=== PATIENT | female | born 1985 | race Caucasian/White ===

== ENCOUNTER 2017-02-10 08:32 | Day surgery (SDC) | payer MEDICARE, OTHER, SELFPAY ==
[~2017-02-10 08:32] MED LIST: Midazolam 1 MG/ML 2 ML SDV ONE; Propofol 200 MG/20 ML SDV ONE; fentaNYL 100 MCG/2 ML SDV ONE
[2017-02-10] MEDS ORDERED: Lactated Ringers 1,000 ML IV SCH (09:00)
[2017-02-10] MEDS ORDERED: Glycopyrrolate 0.2 MG/ML 2 ML SDV IVPUSH ONE (09:30)
[2017-02-10] MEDS ORDERED: Cyanocobalamin (Vitamin B12) 1,000 MCG/ML SDV IM ONE (10:00)
[2017-02-10] MEDS ORDERED: MVI, Adult with Vitamin K 10 ML, Thiamine 200 MG, Chromium/Copper/Mang/Selen/Zn 1 ML in... IV ONE ×4 (10:00)
[2017-02-10 12:28] VITALS: BP 120/70
--- NOTE | 2017-02-11 16:54 | OR ---
DATE OF PROCEDURE: 02/10/2017 PREOPERATIVE DIAGNOSIS: Epigastric discomfort, heartburn, and dysphagia status post gastric bypass. 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 OPERATIVE PROCEDURE: Upper GI endoscopy with biopsies of gastric pouch for CLOtest. ANESTHESIA: IV sedation. 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 The patient also has history of tongue cancer status post chemotherapy, radiation, and surgical treatment. She presently is on Prilosec 20 mg a day. Plan is to do an upper GI endoscopy with biopsies and/or dilation as indicated. Potential risks including bleeding and perforation were discussed, and the patient wishes to proceed. DETAILS OF PROCEDURE: The patient was taken to the operating room and placed in a left lateral decubitus position. IV sedation was administered, after which the upper GI endoscope was passed orally through the length of esophagus into the gastric pouch through the gastrojejunostomy roughly 20 cm into the Kelli limb. Findings included a normal esophageal body. The patient did have a little bit of narrowing at the upper esophageal sphincter. This is related to previous radiation treatment. Apart from that, the remainder of the esophagus was unremarkable. At the EG junction, there was no significant inflammation within the gastric pouch. There was some moderate redness and edema present suggestive of pouch gastritis which was likely causing the patient's symptoms. The gastrojejunostomy was wide open without any evidence of marginal ulcer and the remaining portion of the Kelli limb was unremarkable. Artur Gramajo MD /[id number]
== END 2017-02-10 12:15 | disposition home or self-care (01) ==
LOC: JP.SDS 08:32
PROVIDERS: ATTEND Surgery
DX: K29.70 Gastritis, unspecified, without bleeding (principal); K21.9 Gastro-esophageal reflux disease without esophagitis; J45.909 Unspecified asthma, uncomplicated; E03.9 Hypothyroidism, unspecified; F41.9 Anxiety disorder, unspecified; F32.9 Major depressive disorder, single episode, unspecified; Z88.1 Allergy status to other antibiotic agents; Z88.8 Allergy status to other drugs, medicaments and biological substances; Z91.040 Latex allergy status; Z91.09 Other allergy status, other than to drugs and biological substances; Z87.891 Personal history of nicotine dependence; Z90.49 Acquired absence of other specified parts of digestive tract; Z98.84 Bariatric surgery status; Z98.890 Other specified postprocedural states; Z90.710 Acquired absence of both cervix and uterus
CPT/HCPCS: 43239; 87081; J2250; J2704; J3010; J3411; J3420; J7120; J3490

== ENCOUNTER 2022-09-11 10:15 | Inpatient (IN) | payer MEDICARE, OTHER ==
[2022-09-15] MEDS ORDERED: Celecoxib 200 MG Cap PO ONE (09:00)
[2022-09-15] MEDS ORDERED: Scopolamine 1.5 MG Transdermal Patch TOP SCH (09:00)
[2022-09-15] MEDS ORDERED: Dextrose 5%-Lactated Ringers 1,000 ML IV SCH (10:00)
[2022-09-15] MEDS ORDERED: Ropivacaine 30 ML, dexAMETHasone 8 MG, EPINEPHrine 0.4 MG, Sodium Chloride 0.9% 47.6 ML NERVRT SCH ×4 (10:15)
[2022-09-15] MEDS ORDERED: Ketamine 17 MG in Sodium Chloride 0.9% 19.83 ML IV SCH (10:15)
[2022-09-15] MEDS ORDERED: Ketamine 500 MG/5 ML MDV IV SCH (10:15)
[2022-09-15] MEDS ORDERED: Albuterol/Ipratropium 3.0-0.5 MG/3 ML Neb Soln NEB ONE (10:30)
[2022-09-15] MEDS ORDERED: Meropenem 500 MG in Sodium Chloride 0.9% 50 ML IV ONE (10:30)
[2022-09-19] MEDS ORDERED: Bupivacaine 0.5% 50 ML MDV ONE (06:55)
[2022-09-19] MEDS ORDERED: Meropenem 500 MG SDV ONE ×2 (06:55→07:34)
[2022-09-19] MEDS ORDERED: Lidocaine 1% with EPINEPHrine 1:100,000 50 ML MDV ONE (06:56)
[2022-09-19] MEDS ORDERED: Neostigmine Methylsulfate 1 MG/ML 5 ML Syringe ONE (07:18)
[2022-09-19] MEDS ORDERED: Succinylcholine 200 MG/10 ML MDV ONE (07:18)
[2022-09-19] MEDS ORDERED: fentaNYL 250 MCG/5 ML SDV ONE ×2 (07:18→11:59)
[2022-09-19] MEDS ORDERED: Propofol 200 MG/20 ML SDV ONE (07:18)
[2022-09-19] MEDS ORDERED: Rocuronium 50 MG/5 ML Vial ONE (07:18)
[2022-09-19] MEDS ORDERED: Glycopyrrolate 0.2 MG/ML 5 ML MDV ONE (07:18)
[2022-09-19] MEDS ORDERED: Dexamethasone 4 MG/ML SDV ONE (07:18)
[2022-09-19] MEDS ORDERED: Ondansetron 4 MG/2 ML SDV ONE (07:18)
[2022-09-19] MEDS: Albuterol/Ipratropium 3.0-0.5 MG/3 ML Neb Soln NEB ONE ×2 (08:48→15:22)
[2022-09-19 09:06] LABS: ESTIMATED GFR 113 mL/min (>60)
[2022-09-19] MEDS ORDERED: Ketamine 17 MG in Sodium Chloride 0.9% 19.83 ML IV SCH (09:45)
[2022-09-19] MEDS ORDERED: Scopolamine 1.5 MG Transdermal Patch TOP ONE (09:45)
[2022-09-19] MEDS ORDERED: Dextrose 5%-Lactated Ringers 1,000 ML IV SCH ×2 (09:45→15:30)
[2022-09-19] MEDS ORDERED: Ropivacaine 30 ML, dexAMETHasone 8 MG, EPINEPHrine 0.4 MG, Sodium Chloride 0.9% 47.6 ML NERVRT SCH ×4 (09:45)
[2022-09-19] MEDS ORDERED: Celecoxib 200 MG Cap PO ONE (09:45)
[2022-09-19] MEDS ORDERED: Ketamine 500 MG/5 ML MDV IV SCH (09:45)
[2022-09-19] MEDS ORDERED: Meropenem 500 MG in Sodium Chloride 0.9% 50 ML IV ONE (10:15)
[2022-09-19] MEDS ORDERED: ePHEDrine 50 MG/ML SDV ONE (11:38)
[2022-09-19] MEDS ORDERED: diphenhydrAMINE 50 MG/ML SDV IVPUSH PRN ×2 (12:08→16:00)
[2022-09-19] MEDS ORDERED: Ondansetron 4 MG/2 ML SDV IVPUSH PRN ×2 (12:08→16:00)
[2022-09-19] MEDS ORDERED: diphenhydrAMINE 25 MG Cap PO PRN (12:08)
[2022-09-19] MEDS ORDERED: Naloxone 0.4 MG/ML SDV IVPUSH PRN (12:08)
[2022-09-19] MEDS ORDERED: Glucagon,Human Recombinant 1 MG Vial ONE (12:33)
[2022-09-19] MEDS: HYDROmorphone/Normal Saline 6 MG/30 ML PCA Vial IV PRN ×2 (12:34→19:21)
[2022-09-19] MEDS ORDERED: Melatonin 3 MG Tab PO PRN (15:48)
[2022-09-19] MEDS ORDERED: Lidocaine 2% Viscous Solution 15 ML UD PO PRN (15:54)
[2022-09-19] MEDS: Cyclobenzaprine 10 MG Tab PO PRN (15:55)
[2022-09-19] MEDS ORDERED: Metoclopramide 10 MG/2 ML SDV IVPUSH PRN (16:00)
[2022-09-19] MEDS ORDERED: Labetalol 20 MG/4 ML Syringe IVPUSH PRN (16:00)
[2022-09-19] MEDS ORDERED: Acetaminophen 500 MG Tab PO PRN (16:00)
[2022-09-19] MEDS ORDERED: MVI, Adult with Vitamin K 10 ML, Thiamine 200 MG, Zinc/Copper/Manganese/Selenium 1 ML i... IV SCH ×4 (16:00)
[2022-09-19] MEDS ORDERED: hydrOXYzine HCl 50 MG/ML SDV IM PRN (16:00)
[2022-09-19] MEDS ORDERED: Albuterol/Ipratropium 3.0-0.5 MG/3 ML Neb Soln INH PRN (16:00)
[2022-09-19] MEDS: Meropenem 500 MG in Sodium Chloride 0.9% 50 ML IV SCH ×2 (16:32→22:53)
[2022-09-19] MEDS: Pantoprazole 40 MG Vial IVPUSH SCH (16:35)
[2022-09-19] MEDS: 1: AA 5%/Calcium/D15W/Lytes 1,000 ML with MVI, Adult with Vitamin K 10 ML, Zinc/Copper/M IV SCH ×3 (17:27)
[2022-09-19] MEDS: Dextrose 5%-Lactated Ringers 1,000 ML IV SCH (17:28)
[2022-09-19] MEDS: Acetaminophen 500 MG Tab PO SCH (17:36)
[2022-09-19] MEDS: Heparin Sodium 5,000 Units/ML Vial SUBCUT SCH (20:17)
[2022-09-19] MEDS: Mirtazapine 15 MG Tab PO SCH (20:18)
[2022-09-19] MEDS: Albuterol/Ipratropium 3.0-0.5 MG/3 ML Neb Soln INH SCH (22:01)
[2022-09-19] MEDS: ClonazePAM 0.5 MG Tab PO PRN (22:02)
[2022-09-20] MEDS: Dextrose 5%-Lactated Ringers 1,000 ML IV SCH ×2 (01:21→12:51)
[2022-09-20] MEDS: Acetaminophen 500 MG Tab PO SCH ×3 (02:00→18:11)
[2022-09-20] MEDS: Cyclobenzaprine 10 MG Tab PO PRN ×2 (03:41→15:32)
[2022-09-20] MEDS: Meropenem 500 MG in Sodium Chloride 0.9% 50 ML IV SCH ×3 (03:41→15:36)
[2022-09-20] MEDS ORDERED: Iopamidol 612 MG/ML 30 ML SDV PO ONE (04:19)
[2022-09-20 05:18] LABS: ESTIMATED GFR 118 mL/min (>60)
[2022-09-20] MEDS: 1: AA 5%/Calcium/D15W/Lytes 1,000 ML with MVI, Adult with Vitamin K 10 ML, Zinc/Copper/M IV SCH ×6 (05:43→18:15)
[2022-09-20] MEDS: Levothyroxine 100 MCG Tab PO SCH (07:24)
[2022-09-20] MEDS: Heparin Sodium 5,000 Units/ML Vial SUBCUT SCH ×2 (07:25→20:23)
[2022-09-20] MEDS: ClonazePAM 0.5 MG Tab PO PRN ×2 (07:46→18:31)
[2022-09-20] MEDS: Celecoxib 200 MG Cap PO SCH ×2 (09:05→20:23)
[2022-09-20] MEDS: Liothyronine 5 MCG Tab PO SCH (09:05)
[2022-09-20] MEDS: Albuterol/Ipratropium 3.0-0.5 MG/3 ML Neb Soln INH SCH ×4 (09:05→20:23)
[2022-09-20] MEDS: SCOPOLAMINE PATCH CHECK TOP SCH (09:06)
[2022-09-20] MEDS: Pantoprazole 40 MG Vial IVPUSH SCH (15:33)
[2022-09-20] MEDS: Fat Emulsion 100 ML IV SCH (15:37)
[2022-09-20] MEDS: Mirtazapine 15 MG Tab PO SCH (20:24)
[2022-09-20] MEDS: HYDROmorphone/Normal Saline 6 MG/30 ML PCA Vial IV PRN (21:52)
[2022-09-21] MEDS: Acetaminophen 500 MG Tab PO SCH ×3 (03:00→17:55)
[2022-09-21] MEDS: ClonazePAM 0.5 MG Tab PO PRN ×3 (04:17→19:33)
[2022-09-21] MEDS: Cyclobenzaprine 10 MG Tab PO PRN ×2 (04:17→19:33)
[2022-09-21] MEDS: 1: AA 5%/Calcium/D15W/Lytes 1,000 ML with MVI, Adult with Vitamin K 10 ML, Zinc/Copper/M IV SCH ×6 (06:29→19:41)
[2022-09-21] MEDS: Levothyroxine 100 MCG Tab PO SCH (07:19)
[2022-09-21] MEDS: Albuterol/Ipratropium 3.0-0.5 MG/3 ML Neb Soln INH SCH (07:20)
[2022-09-21] MEDS: Heparin Sodium 5,000 Units/ML Vial SUBCUT SCH ×2 (07:20→19:34)
[2022-09-21] MEDS: Liothyronine 5 MCG Tab PO SCH (08:44)
[2022-09-21] MEDS: Celecoxib 200 MG Cap PO SCH ×2 (08:44→20:50)
[2022-09-21] MEDS: SCOPOLAMINE PATCH CHECK TOP SCH (08:45)
[2022-09-21] MEDS ORDERED: Cyanocobalamin (Vitamin B12) 1,000 MCG/ML SDV IM ONE (09:00)
[2022-09-21] MEDS: Magnesium Sulfate/Water 2 GM in Premix Bag 1 BAG IV SCH ×2 (13:14→17:54)
[2022-09-21] MEDS: Pantoprazole 40 MG Vial IVPUSH SCH (16:28)
[2022-09-21] MEDS: HYDROmorphone/Normal Saline 6 MG/30 ML PCA Vial IV PRN (20:08)
[2022-09-21] MEDS: Mirtazapine 15 MG Tab PO SCH (20:50)
[2022-09-22] MEDS: Magnesium Sulfate/Water 2 GM in Premix Bag 1 BAG IV SCH ×6 (00:20→23:19)
[2022-09-22] MEDS: Acetaminophen 500 MG Tab PO SCH ×4 (01:28→17:27)
[2022-09-22] MEDS: ClonazePAM 0.5 MG Tab PO PRN ×3 (04:35→21:58)
[2022-09-22] MEDS: Cyclobenzaprine 10 MG Tab PO PRN (04:35)
[2022-09-22 05:06] LABS: ESTIMATED GFR 123 mL/min (>60)
[2022-09-22] MEDS: Levothyroxine 100 MCG Tab PO SCH (07:01)
[2022-09-22] MEDS ORDERED: Central Total Parenteral Nutrition Bag SCH (08:00)
[2022-09-22] MEDS: 1: AA 5%/Calcium/D15W/Lytes 1,000 ML with MVI, Adult with Vitamin K 10 ML, Zinc/Copper/M IV SCH ×3 (08:09)
[2022-09-22] MEDS: Heparin Sodium 5,000 Units/ML Vial SUBCUT SCH ×2 (08:21→19:52)
[2022-09-22] MEDS: Cyclobenzaprine 10 MG Tab PO SCH ×4 (08:22→23:24)
[2022-09-22] MEDS: Celecoxib 200 MG Cap PO SCH ×2 (08:23→21:59)
[2022-09-22] MEDS: Docusate Sodium 100 MG Cap PO SCH ×2 (08:23→21:59)
[2022-09-22] MEDS: Liothyronine 5 MCG Tab PO SCH (08:23)
[2022-09-22] MEDS: Bisacodyl 5 MG Tab PO SCH ×2 (08:23→21:59)
[2022-09-22] MEDS: oxyCODONE 5 MG Tab PO PRN ×3 (08:58→19:51)
[2022-09-22] MEDS: Dextrose 5%-Lactated Ringers 1,000 ML IV SCH (09:04)
[2022-09-22] MEDS: Pantoprazole 40 MG Vial IVPUSH SCH (15:20)
[2022-09-22] MEDS: Fat Emulsion 100 ML IV SCH (15:20)
[2022-09-22] MEDS: Mirtazapine 15 MG Tab PO SCH (21:59)
[2022-09-22] MEDS ORDERED: 1: AA 5%/Calcium/D15W/Lytes 1,000 ML with MVI, Adult with Vitamin K 10 ML, Zinc/Copper/M IV SCH ×3 (23:00)
[2022-09-23] MEDS: Acetaminophen 500 MG Tab PO SCH ×2 (02:24→10:33)
[2022-09-23 05:36] LABS: ESTIMATED GFR 123 mL/min (>60)
[2022-09-23] MEDS: Magnesium Sulfate/Water 2 GM in Premix Bag 1 BAG IV SCH (05:36)
[2022-09-23 06:24] VITALS: BP 113/69; PULSE 83
[2022-09-23] MEDS: Cyclobenzaprine 10 MG Tab PO SCH (07:55)
[2022-09-23] MEDS: oxyCODONE 5 MG Tab PO PRN (07:55)
[2022-09-23] MEDS: Heparin Sodium 5,000 Units/ML Vial SUBCUT SCH (07:56)
[2022-09-23] MEDS: Levothyroxine 100 MCG Tab PO SCH (07:56)
[2022-09-23] MEDS: Liothyronine 5 MCG Tab PO SCH (10:32)
[2022-09-23] MEDS: ClonazePAM 0.5 MG Tab PO PRN (10:32)
[2022-09-23] MEDS: Celecoxib 200 MG Cap PO SCH (10:32)
[2022-09-23] MEDS: Bisacodyl 5 MG Tab PO SCH (10:33)
[2022-09-23] MEDS: Docusate Sodium 100 MG Cap PO SCH (10:33)
== END 2022-09-23 11:20 | disposition home or self-care (01) | DRG 619 ==
LOC: JP.SDSSCHI 09-19 08:13 → JP.MS 09-19 14:30
PROVIDERS: ADMIT Surgery; ATTEND Surgery
PROC: 0DB80ZZ Excision of Small Intestine, Open Approach (ICD-10-PCS; principal; 2022-09-19)
PROC: 0DB60ZZ Excision of Stomach, Open Approach (ICD-10-PCS; 2022-09-19)
PROC: 0D1 Gastrointestinal System, Bypass (ICD-10-PCS; 2022-09-19)
PROC: 0DBA0ZZ Excision of Jejunum, Open Approach (ICD-10-PCS; 2022-09-19)
PROC: 0DB50ZZ Excision of Esophagus, Open Approach (ICD-10-PCS; 2022-09-19)
PROC: 0DNW0ZZ Release Peritoneum, Open Approach (ICD-10-PCS; 2022-09-19)
PROC: 0WUF0JZ Supplement Abdominal Wall with Synthetic Substitute, Open Approach (ICD-10-PCS; 2022-09-19)
DX: E46 Unspecified protein-calorie malnutrition (principal); K56.2 Volvulus; K55.9 Vascular disorder of intestine, unspecified; C02.9 Malignant neoplasm of tongue, unspecified; J45.909 Unspecified asthma, uncomplicated; G89.29 Other chronic pain; E03.8 Other specified hypothyroidism; E28.2 Polycystic ovarian syndrome; E78.5 Hyperlipidemia, unspecified; K31.84 Gastroparesis; G43.909 Migraine, unspecified, not intractable, without status migrainosus; E03.9 Hypothyroidism, unspecified; Z85.819 Personal history of malignant neoplasm of unspecified site of lip, oral cavity, and pharynx; Z79.51 Long term (current) use of inhaled steroids; Z79.899 Other long term (current) drug therapy; Z87.891 Personal history of nicotine dependence; Z98.84 Bariatric surgery status; Z68.22 Body mass index [BMI] 22.0-22.9, adult; Z88.8 Allergy status to other drugs, medicaments and biological substances; Z91.040 Latex allergy status
CPT/HCPCS: 36415; 74240; 74240-26; 76000; 76000-26; 80053; 83735; 84100; 84703; 85025; 85027; 88302; 88305; 88307; 94640; A9270-GY; C9113; J0131; J0171; J0330; J1100; J1170; J1610; J1642; J1644; J2020; J2185; J2405; J2704; J2710; J2795; J3010; J3420; J3475; J3490; J7121; J7620; Q9967